=== PATIENT | male | born 1960 | race Caucasian/White ===

== ENCOUNTER 2019-02-21 11:53 | Emergency (ER) | payer OTHER, SELFPAY ==
[2019-02-21 11:54] VITALS: BP 153/81; PULSE 66; RESP 16; TEMP 36.4; O2SAT 96; BMI 41.1
--- NOTE | 2019-02-21 12:49 | RAD_ITS ---
STUDY: X-RAY - RIGHT ANKLE REASON FOR EXAM: Male, 58 years old. Pain and swelling following injury. TECHNIQUE: 3 view(s) of the ankle. COMPARISON: None. FINDINGS: Normal visualized distal tibia and fibula. Normal medial and lateral malleoli. Normal tibiotalar articulation and ankle mortise. Normal visualized talus and calcaneus. The visualized subtalar, talonavicular, calcaneocuboid and tarsal articulations are normal. Lateral soft tissue swelling. RAD/Ankle min 3 Views IMPRESSION: Lateral soft tissue swelling. Electronically Signed: Bhupinder Fitzpatrick, at 14:26 EDT , Service support ,
--- NOTE | 2019-02-21 12:49 | RAD_ITS ---
STUDY: X-RAY - RIGHT FOOT CLINICAL: Male, 58 years old. Pain and swelling following a fall. TECHNIQUE: 3 view(s) of the foot. COMPARISON: None. FINDINGS: Normal talus, calcaneus, and tarsal bones. Normal visualized subtalar, talonavicular, calcaneocuboid, tarsal and tarsometatarsal articulations. Normal metatarsi. Normal metatarsophalangeal joint of the great toe. Normal tibial and fibular sesamoid bones. Normal interphalangeal joint of the great toe. Normal phalanges of the great toe. Normal second through fifth metatarsophalangeal joints. Normal interphalangeal joints and phalanges of the lesser toes. Soft tissue swelling. RAD/Foot min 3 Views IMPRESSION: Soft tissue swelling. Electronically Signed: Bhupinder Fitzpatrick, at 14:25 EDT , Service support ,
--- NOTE | 2019-02-21 14:20 | ED.VISSUMM ---
- ER Visit Summary Date of Service: 02/21/19 Chief Complaint: [Injury to right foot and ankle] History of Present Illness: The patient is a 58 M [presents to the emergency department after sustaining an injury while at work today. Patient states that he was putting in a new water line when he stepped forward and rolled his ankle felt a pop. Patient states that he had hurt the same ankle about a week ago. Patient Nuys any other injuries. He denies any head or neck injury. Patient denies any medical problems.] Physical Examination: [HEENT-PERRLA, EOMI. Cranial nerves II through XII grossly intact. TMs clear. Mucous membranes moist. No adenopathy. Cardiovascular-regular rate and rhythm without murmur or ectopy Lungs-clear to auscultation, chest wall stable without crepitus or subcu emphysema Abdomen-normoactive bowel sounds, soft, nontender, no rebound or rigidity, no peritoneal signs. Extremities-intact ?4, normal range of motion, normal pulses. Right foot and ankle-patient has diffuse soft tissue swelling over the ankle with tenderness over the lateral malleolus. Patient also has tenderness over the base of the fifth metatarsal. He has no pain at the proximal fibular head. Patient neurovascular intact distally. Test Results: [X-rays of the right foot and ankle obtained read by myself as no acute fractures however official report from radiology pending.] Emergency Department Course and Treatment: [Patient was given a walking boot and he did not want anything for pain. Patient states that he has crutches at home] Treatment Plan: [Patient to ice and elevate extremity. Patient use ibuprofen or Tylenol for discomfort. Patient to bear weight as tolerated. Patient to follow-up with primary care physician within the next 7 to 10 days.] Disposition: [Discharged home in stable condition.] Impression: [Right foot and ankle sprain] This note was generated with [employer] dictation software. It may contain incorrect words, spelling, and punctuation that were not noted in review of the chart prior to signing ED Disposition - Plan for ED Patient: Referrals: Meño Jimenez MD [Primary Care Provider] -
--- NOTE | 2019-02-21 14:23 | ED.DEP ---
ED Disposition - Plan for ED Patient: Instructions: Sprain, Ankle, with X-Ray, Sprain Foot Referrals: Meño Jimenez MD [Primary Care Provider] - 5-7 Days
--- NOTE | 2019-02-21 15:35 | ED.RN ---
prescription given for walking boot. the proper size was not available in the ED.
== END 2019-02-21 15:40 | disposition home or self-care (01) ==
PROVIDERS: Emergency Provider Emergency Medicine; Family Provider Family Medicine; PCP Family Medicine
DX: S93.401A Sprain of unspecified ligament of right ankle, initial encounter (principal); S93.601A Unspecified sprain of right foot, initial encounter; X50.1XXA Overexertion from prolonged static or awkward postures, initial encounter; Y93.9 Activity, unspecified; Y92.9 Unspecified place or not applicable; Y99.9 Unspecified external cause status
CPT/HCPCS: 73610; 73630; 99283

== ENCOUNTER → 2020-08-20 15:06 | Outpatient (CLI) | payer OTHER, SELFPAY ==
--- NOTE | 2020-08-20 15:09 | RAD_ITS ---
STUDY: X-RAY CHEST REASON FOR EXAM: Male, 60 years old. chest discomfort and sob x 2 weeks TECHNIQUE: PA and lateral views of the chest. COMPARISON: None. FINDINGS: The lungs are clear and expanded. There is no demonstrated pleural abnormality. Normal size heart. Normal mediastinum and magno. Normal visualized pulmonary arteries. Normal visualized aortic arch and descending thoracic aorta. Normal visualized thoracic spine. Normal visualized ribs, clavicles, and shoulders. There is no demonstrated abnormality of the visualized soft tissue structures of the upper abdomen. RAD/Chest PA and Lateral IMPRESSION: Normal x-ray examination of the chest. Electronically Signed: Wayne Waller MD at 16:54 EST Tel , Service support ,
[2020-08-20 17:41] LABS: Absolute Lymphocyte Count 2.11 X10^3/uL (0.83-4.51); Absolute Neutrophil Count 3.5 X10^3/uL (2.0-7.7); Basophil# 0.02 X10^3/uL; Basophil% 0.3 % (0-1); Eosinophil# 0.12 X10^3/uL; Eosinophils% 1.9 % (0-5); Hemoglobin 14.4 g/dL (13.0-16.5); Lymphocyte # 2.11 X10^3/ul (4.0); Lymphocyte % 33.2 % (19-41); Mean Corp Hgb Conc 31.3 g/dL (32-36); Mean Corpuscular Hgb 28.4 pg (27.0-32.0); Mean Corpuscular Volume 90.7 fL (80-94); Mean Platelet Vol. 9.8 fl (6.2-12.0); Monocyte# 0.61 X10^3/uL; Monocyte% 9.6 % (0-10); NRBC Flagged by Analyzer 0 % (0-5); Neutrophil # 3.48 X10^3/uL (2.7-7.7); Neutrophil % 54.7 % (47-70); Platelet Count 273 K/mm3 (150-450); RBC Distribution Width CV 13.9 % (11.6-14.6); RBC Distribution Width SD 46.5 fl (35.1-43.9); Red Blood Count 5.07 M/mm3 (4.6-6.2); White Blood Count 6.4 K/mm3 (4.4-11.0)
[2020-08-20 18:15] LABS: Anion Gap 8 (5-15); BUN 19 mg/dL (7-18); BUN/Creat Ratio 16.8 RATIO (10-20); Calcium,Total 9.2 mg/dL (8.5-10.1); Chloride 106 mmol/L (98-107); Cholesterol 221 mg/dL (200); Creatinine, Serum 1.13 mg/dL (0.70-1.30); EST Glomerular Filtration Rate 71 mL/min (>60); Est Glom Filt Rate - Afr Amer 85 mL/min (>60); Glucose 92 mg/dL (74-106); High Density Lipoprotein 31 mg/dL; PSA,Total - Annual Screen 1.04 ng/mL (0.00-4.00); Potassium 3.8 mmol/L (3.5-5.1); Sodium Level 141 mmol/L (136-145); Thyroid Stim Hormone (TSH) 1.78 uIU/mL (0.358-3.74); Triglycerides 216 mg/dL; Very Low Density Lipoprotein 43 mg/dL (5-40)
== END ==
PROVIDERS: PCP Family Medicine; Referring Provider Family Medicine; Visit Provider Family Medicine
DX: R07.9 Chest pain, unspecified (principal); Z12.5 Encounter for screening for malignant neoplasm of prostate
CPT/HCPCS: 36415; 71046; 80048; 80061; 84153; 84443; 85025; G0103

== ENCOUNTER 2020-08-24 02:05 | Emergency (ER) | payer OTHER, SELFPAY ==
[2020-08-24 02:08] VITALS: BP 113/80; PULSE 157; RESP 14; TEMP 36.6; O2SAT 98; BMI 34.9
--- NOTE | 2020-08-24 02:08 | EKG12_ITS ---
Test Reason : REPEAT Blood Pressure : / mmHG Vent. Rate : 092 BPM Atrial Rate : 092 BPM P-R Int : 164 ms QRS Dur : 108 ms QT Int : 342 ms P-R-T Axes : 007 -18 009 degrees QTc Int : 422 ms Normal sinus rhythm Minimal voltage criteria for LVH, may be normal variant Borderline ECG Confirmed by NOEMÍ TORRES, STEVENSON ([id number]), editor farm journal ARBEN LAMBERT ([id number]) on 08/24/2020 11:26:49 AM Referred By: Confirmed By:STEVENSON DOWD MD
--- NOTE | 2020-08-24 02:08 | RAD_ITS ---
STUDY: X-RAY CHEST REASON FOR EXAM: Male, 60 years old. Chest pain TECHNIQUE: Single AP portable view of the chest. COMPARISON: 08/20/2020 FINDINGS: The lungs are clear and expanded. There is no demonstrated pleural abnormality. Normal size heart. Normal mediastinum and magno. Normal visualized pulmonary arteries. Normal visualized aortic arch and descending thoracic aorta. Normal visualized thoracic spine. Normal visualized ribs, clavicles, and shoulders. There is no demonstrated abnormality of the visualized soft tissue structures of the upper abdomen. RAD/Chest 1 View (Portable) IMPRESSION: Normal x-ray examination of the chest. Electronically Signed: Sven Caballero MD at 2:39 EST Tel , Service support ,
--- NOTE | 2020-08-24 02:11 | ED.RN ---
NO OLD EKGS IN MUSE
[2020-08-24 02:15] VITALS: BP 117/89; PULSE 156; RESP 14; O2SAT 95
[2020-08-24] MEDS: Adenosine 6 MG/2 ML Syringe IV (02:19)
[2020-08-24 02:23] VITALS: BP 117/89; PULSE 90; RESP 15; O2SAT 96
--- NOTE | 2020-08-24 02:25 | ED.VIS.GEN ---
History of Present Illness Chief Complaint: Chest Pain Informant: Patient, Family Narrative: 60-year-old male with no significant medical problems presents the emergency department with chest pain and palpitations. Patient returned home from a [place] vacation on 11 August. He spent 1 week in bed feeling significant fatigue. He states that he at times will feel his heart racing and he gets a heaviness in his chest. Is been intermittent over the last couple days. He saw his primary care physician and had blood work and an EKG. He is scheduled for a stress test. Symptoms came on tonight and he came to emergency. He has been taking a baby aspirin a day since he saw his doctor. He notes some swelling of his right leg following a injury while playing volleyball in which he tore the calf muscle. He denies any pleuritic pain to the chest. No significant dyspnea. Past Medical History - Allergies and Home Meds Allergies/Adverse Reactions: Allergies seafood Allergy (Uncoded 08/24/20 02:07) Hives Primary Care Physician: Meño Jimenez MD [Primary Care Provider] - Past Medical History: None Surgical History: noncontributory Lives: Spouse/ Significant Other Smoking Status: Never smoker Drugs: None Review of Systems General: Reports: Malaise. Denies: Chills, Fever, Sweats Eyes: Denies: Visual changes - bilaterally, Diplopia ENT: Denies: Rhinorrhea, Sore throat Cardiovascular: Reports: Chest pain, Palpitations, Heart racing Respiratory: Reports: Dyspnea. Denies: Cough, Dyspnea on exertion Gastrointestinal: Denies: Abdominal pain, Nausea, Vomiting, Diarrhea, Melena, Hematochezia Genitourinary: Denies: Dysuria, Hematuria, Frequency Musculoskeletal: Denies: Back pain, Extremity Pain Skin: Denies: Rash, Wounds Neurological: Denies: Headache, Weakness, Numbness Physical Exam Vital Signs/Narrative: Vital Signs Temp Pulse Resp BP Pulse Ox 08/24/20 02:23 90 15 117/89 H 96 08/24/20 02:15 156 H 14 117/89 H 95 08/24/20 02:08 97.9 F 157 H 14 113/80 98 Inital Vital Signs reviewed: Yes General: Well nourished, Well developed, Obese, No Acute Distress Head: Normocephalic, Atraumatic Eyes: Perrl, EOMI ENT: Moist mucous membranes, No rhinorrhea Neck: Supple, Nontender Cardiovascular: Regular rate, No murmurs, Tachycardia Respiratory: No distress, CTA bilaterally, Chest nontender Abdomen: Soft, Nontender, Nondistended, Normal bowel sounds Back: Nontender, Normal Inspection Extremities: No edema, Tenderness - Right calf secondary to injury Skin: Normal color, No rash Neurological: Alert, Oriented x3, Cranial nerves II-XII grossly intact, Normal Strength, Normal Sensation Psychological: Normal affect, Normal Mood Diagnostic/Tx/Re-eval Clinical Impression(s) from Imaging Studies Chest X-Ray 08/24/20 02:08 IMPRESSION: Normal x-ray examination of the chest. Electronically Signed: Sven Caballero MD at 2:39 EST Tel , Service support , Laboratory Last Values WBC 10.5 K/mm3 (4.4-11.0) 08/24/20 02:10 RBC 4.85 M/mm3 (4.6-6.2) 08/24/20 02:10 Hgb 14.5 g/dL (13.0-16.5) 08/24/20 02:10 Hct 44.1 % (40-54) 08/24/20 02:10 MCV 90.9 fL (80-94) 08/24/20 02:10 MCH 29.9 pg (27.0-32.0) 08/24/20 02:10 MCHC 32.9 g/dL (32-36) D 08/24/20 02:10 RDW Std Deviation 47.6 fl (35.1-43.9) H 08/24/20 02:10 RDW Coeff of Addis 14.1 % (11.6-14.6) 08/24/20 02:10 Plt Count 267 K/mm3 (150-450) 08/24/20 02:10 MPV 10.1 fl (6.2-12.0) 08/24/20 02:10 Immature Gran % (Auto) 0.500 % (0.0-0.9) 08/24/20 02:10 Neut % (Auto) 58.6 % (47-70) 08/24/20 02:10 Lymph % (Auto) 30.4 % (19-41) 08/24/20 02:10 Wheeler % (Auto) 8.1 % (0-10) 08/24/20 02:10 Eos % (Auto) 2.0 % (0-5) 08/24/20 02:10 Baso % (Auto) 0.4 % (0-1) 08/24/20 02:10 Absolute Neuts (auto) 6.1 X10^3/uL (2.0-7.7) 08/24/20 02:10 Absolute Lymphs (auto) 3.18 X10^3/uL (0.83-4.51) 08/24/20 02:10 Nucleated RBC % 0 % (0-5) 08/24/20 02:10 PT 12.5 SECONDS (11.7-14.9) 08/24/20 02:10 INR 1.0 08/24/20 02:10 APTT 34.4 Seconds (24.1-36.2) 08/24/20 02:10 Sodium 140 mmol/L (136-145) 08/24/20 02:10 Potassium 3.6 mmol/L (3.5-5.1) 08/24/20 02:10 Chloride 109 mmol/L (98-107) H 08/24/20 02:10 Carbon Dioxide 26.0 mmol/L (21.0-32.0) 08/24/20 02:10 Anion Gap 5 (5-15) 08/24/20 02:10 BUN 19 mg/dL (7-18) H 08/24/20 02:10 Creatinine 1.31 mg/dL (0.70-1.30) H 08/24/20 02:10 Estim Creat Clear Calc 62.69 ml/min 08/24/20 02:10 Est GFR (MDRD) Af Amer 72 mL/min (>60) 08/24/20 02:10 Est GFR (MDRD) Non-Af 60 mL/min (>60) 08/24/20 02:10 BUN/Creatinine Ratio 14.5 RATIO (10-20) 08/24/20 02:10 Glucose 130 mg/dL (74-106) H 08/24/20 02:10 Calcium 9.6 mg/dL (8.5-10.1) 08/24/20 02:10 Magnesium 2.2 mg/dL (1.6-2.6) 08/24/20 02:10 Troponin I 0.024 ng/mL (<0.045) 08/24/20 02:10 TSH 2.29 uIU/mL (0.358-3.74) 08/24/20 02:10 - EKG Initial EKG Interpretation: - - Initial EKG shows a SVT pattern and a rate of 156. No concerning features of ACS. - Medical Decision Making Patient's heart rate much has stayed about 160 during the interview We gave him 6 mg of adenosine and following the pause the patient returned to a sinus rhythm. He was observed on the monitor while we obtain the blood work. No further dysrhythmias were noted. Basic blood work is negative. I spoke with on-call cardiology Dr. Amaral. We will place him on metoprolol 25 mg a day first dose will be given here. He is to call the office in the morning to arrange early follow-up. - Critical Care Time Critical care time (excluding procedures): 30-74 minutes - 35 minutes, Discussing w/Patient &/or Family/Cardiopulmonary Physical Therapist, Discussing w/Consultants, Performing Direct Patient Care at Bedside ED Disposition - Plan for ED Patient: Disposition: Home or Assisted Living Diagnosis: SVT (supraventricular tachycardia) Instructions: ED About Arrhythmias Prescriptions: Metoprolol(XL)Succ [Toprol Xl (Beta Veronika)] 25 mg PO DAILY #30 tab Prescription Printed Referrals: Giovanni Amaral MD [STAFF PHYSICIAN] - (call the office to arrange early follow up - please tell them you came to the ED tonight and had SVT. Tell them you have a stress test next week already scheduled and to ask if they want you seen before that test.)
--- NOTE | 2020-08-24 02:29 | EKG12_ITS ---
Test Reason : CP Blood Pressure : / mmHG Vent. Rate : 156 BPM Atrial Rate : 038 BPM P-R Int : 000 ms QRS Dur : 102 ms QT Int : 284 ms P-R-T Axes : 000 -15 073 degrees QTc Int : 457 ms Supraventricular tachycardia Nonspecific ST and T wave abnormality Abnormal ECG Confirmed by NOEMÍ TORRES, STEVENSON ([id number]), editor farm journal ARBEN LAMBERT ([id number]) on 08/24/2020 11:26:40 AM Referred By: Confirmed By:STEVENSON DOWD MD
[2020-08-24 02:32] LABS: Absolute Lymphocyte Count 3.18 X10^3/uL (0.83-4.51); Absolute Neutrophil Count 6.1 X10^3/uL (2.0-7.7); Basophil# 0.04 X10^3/uL; Basophil% 0.4 % (0-1); Eosinophil# 0.21 X10^3/uL; Hematocrit 44.1 % (40-54); Hemoglobin 14.5 g/dL (13.0-16.5); Lymphocyte # 3.18 X10^3/ul (4.0); Lymphocyte % 30.4 % (19-41); Mean Corp Hgb Conc 32.9 g/dL (32-36); Mean Corpuscular Hgb 29.9 pg (27.0-32.0); Mean Corpuscular Volume 90.9 fL (80-94); Mean Platelet Vol. 10.1 fl (6.2-12.0); Monocyte# 0.85 X10^3/uL; Monocyte% 8.1 % (0-10); NRBC Flagged by Analyzer 0 % (0-5); Neutrophil # 6.14 X10^3/uL (2.7-7.7); Neutrophil % 58.6 % (47-70); Platelet Count 267 K/mm3 (150-450); RBC Distribution Width CV 14.1 % (11.6-14.6); RBC Distribution Width SD 47.6 fl (35.1-43.9); Red Blood Count 4.85 M/mm3 (4.6-6.2); White Blood Count 10.5 K/mm3 (4.4-11.0)
[2020-08-24 02:37] LABS: Prothrombin Time (Protime)PT. 12.5 SECONDS (11.7-14.9)
[2020-08-24] MEDS: Aspirin 81 MG TAB.CHEW 324 MG PO (02:37)
[2020-08-24 02:38] LABS: Partial Thromboplast Time 34.4 Seconds (24.1-36.2)
[2020-08-24 02:51] LABS: Anion Gap 5 (5-15); BUN 19 mg/dL (7-18); BUN/Creat Ratio 14.5 RATIO (10-20); Calcium,Total 9.6 mg/dL (8.5-10.1); Chloride 109 mmol/L (98-107); Creatinine, Serum 1.31 mg/dL (0.70-1.30); EST Glomerular Filtration Rate 60 mL/min (>60); Est Glom Filt Rate - Afr Amer 72 mL/min (>60); Estimated Creatinine Clearance 62.69 ml/min; Glucose 130 mg/dL (74-106); Magnesium 2.2 mg/dL (1.6-2.6); Potassium 3.6 mmol/L (3.5-5.1); Sodium Level 140 mmol/L (136-145); Thyroid Stim Hormone (TSH) 2.29 uIU/mL (0.358-3.74)
[2020-08-24] MEDS: Metoprolol(XL)Succ 25 MG Tablet PO (03:15)
[2020-08-24 03:16] VITALS: BP 95/78; PULSE 96; RESP 18; O2SAT 95
== END 2020-08-24 03:16 | disposition home or self-care (01) ==
PROVIDERS: Emergency Provider Emergency Medicine; PCP Family Medicine
DX: I47.1 Supraventricular tachycardia (principal); Z79.82 Long term (current) use of aspirin
CPT/HCPCS: 71045; 80048; 83735; 84443; 84484; 85025; 85610; 85730; 93005; 96374; 99285; A4216; J0153

== ENCOUNTER → 2020-08-28 06:41 | Outpatient (CLI) | payer OTHER, SELFPAY ==
[2020-08-24 02:08] VITALS: BMI 34.9
--- NOTE | 2020-08-28 08:45 | STRESSREP_ITS ---
Stress Test Report Date: 08-28-2020 Procedure: Exercise tolerance test/imaging study Indications: Chest pain; PSVT Consent: Per the patient Procedure: The patient exercised on a Edu protocol for 7 minutes and 45 seconds completing Stage II and 1 minute and 45 seconds of Stage III achieving a peak heart rate of 150 bpm (93% predicted maximal heart rate) with a peak blood pressure 198/82 mmHg and a peak MET capacity of 9 METs. The baseline ECG demonstrated sinus rhythm. The peak exercise ECG demonstrated somatic/motion artifact with no obvious ECG changes. There was a rare PVC pretest and during exercise and occasional PACs and PVCs during recovery as well as an isolated ventricular couplet during recovery. The functional capacity was considered good. There was no complaint of chest discomfort during exercise or recovery. The examination was discontinued secondary to dyspnea. Impression: 1. Technically adequate (percent predicted maximal heart rate greater than 85%) exercise tolerance test 2. Peak exercise ECG with somatic/motion artifact with no obvious ECG changes 3. There was a rare PVC pretest and during exercise and occasional PACs and PVCs during recovery as well as an isolated ventricular couplet during recovery 4. Nuclear images pending Myocardial perfusion imaging study: Technique: The patient was injected with 14.7 mCi of technetium 99m Cardiolite and subsequently rest SPECT Cardiolite nuclear imaging was obtained in the horizontal long, vertical long, and short axis views. The patient exercised on a Edu protocol for 7 minutes and 45 seconds completing Stage II and 1 minute and 45 seconds of Stage III achieving a peak heart rate of 150 bpm (93% predicted maximal heart rate) with a peak blood pressure 198/82 mmHg and a peak MET capacity of 9 METs. The patient was injected with 45.0 mCi of technetium 99m Cardiolite and subsequently stress SPECT Cardiolite nuclear imaging was obtained in the horizontal long, vertical long, and short axis views. A gated Cardiolite study at peak stress was obtained. Interpretation: Rest and stress SPECT Cardiolite nuclear imaging status post realignment, mingo lization, and attenuation correction, demonstrates the appearance of relative uniform tracer uptake and myocardial perfusion appearing within normal limits. There is end systolic thickening and brightening. The gated Cardiolite study demonstrates myocardial thickening and inward wall motion. The reported LVEF is 60%. Impression: 1. Rest and stress SPECT Cardiolite nuclear imaging demonstrate relative uniform tracer uptake and myocardial perfusion appearing within normal limits. 2. The gated Cardiolite study reports an LVEF of 60%. This note was generated with [employer] software. It may contain incorrect words, spelling, and punctuation that were not noted in checking the note before signing.
== END ==
PROVIDERS: PCP Family Medicine; Referring Provider Family Medicine; Visit Provider Family Medicine
DX: R07.9 Chest pain, unspecified (principal)
CPT/HCPCS: 78452; 93017; A9500; A4216

== ENCOUNTER → 2020-09-13 06:54 | Outpatient (CLI) | payer OTHER, SELFPAY ==
[2020-08-24 02:08] VITALS: BMI 34.9
--- NOTE | 2020-09-14 10:26 | PFT ---
INTRODUCTION: The patient is a 60-year-old male that presents for pulmonary function studies secondary to a diagnosis of dyspnea. Respiratory therapy reports good patient effort. Bronchodilators were used during testing. INTERPRETATION: Forced expiration spirometry demonstrates the presence of a mild large airways obstructive ventilatory defect. There was no significant response to aerosolized bronchodilators, based upon strict ATS criteria. Spirograms are of good quality and do not plateau indicating slow emptying of the lungs. Body plethysmography was performed and revealed an elevated TLC to 124% of predicted, indicative of underlying hyperinflation. Diffusing capacity by single breath CO was within normal limits. IMPRESSION: Irreversible mild large airways obstructive ventilatory defect with associated hyperinflation and preserved diffusing capacity.
== END ==
PROVIDERS: PCP Family Medicine; Visit Provider Family Medicine
DX: R06.00 Dyspnea, unspecified (principal); R53.83 Other fatigue
CPT/HCPCS: 94060; 94726; 94729

== ENCOUNTER → 2020-09-24 13:48 | Outpatient (CLI) | payer OTHER, SELFPAY ==
[2020-09-20 16:20] VITALS: BMI 35.4
--- NOTE | 2020-09-24 13:51 | ECHOCS_ITS ---
Reason For Study: Arrhythmia Procedure This was a 2D Doppler, Color Flow transthoracic echocardiogram. The study was technically difficult. Contrast injection was performed. Exam performed in department. Left Ventricle Normal LV size. Moderate concentric left ventricular hypertrophy. Left ventricular systolic function is normal. The estimated ejection fraction is 65 %. No evidence for diastolic dysfunction. No regional wall motion abnormalities noted. Right Ventricle Normal RV size. Normal systolic function. Atria The left atrium is mildly enlarged. Normal right atrium. No doppler evidence for ASD. Mitral Valve There is no mitral annular calcification. Mild diffuse mitral valve thickening. Moderate mitral valve prolapse, posterior leaflet. Moderate (2+) eccentric mitral valve insufficiency. Tricuspid Valve Normal tricuspid valve. Trivial tricuspid valve insufficiency. Right ventricular systolic pressure estimated to be 25 mmHg. Aortic Valve Trisinus/trileaflet aortic valve. Normal aortic valve. Pulmonic Valve The pulmonic valve is not well visualized. Great Vessels Normal sized aortic root. Pericardium/Pleural No pericardial effusion. Medication 22 gauge I.V. with prn adaptor inserted into right arm. Diluted definity 3ml given slow IV push to enhance endocardial definition. MMode/2D Measurements & Calculations LVIDd: 5.5 cm IVSd: 1.7 cm Ao root diam: 3.7 cm LVIDs: 4.8 cm LVPWd: 1.6 cm LA dimension: 4.3 cm RVDd: 3.9 cm FS: 13.2 % LAV(MOD-bp): 73.9 ml LA A4 area: 23.5 cm2 RA A4 area: 19.7 cm2 LAV(MOD-bp) Indexed: 32.5 ml/m2 LAV(MOD-sp2): 68.9 ml LAV(MOD-sp4): 65.4 ml Time Measurements MV dec time: 0.18 sec Doppler Measurements & Calculations MV E max bo: 114.5 cm/sec Lat Peak E' Bo: 11.5 cm/sec Med Peak E' Bo: 6.8 cm/sec MV A max bo: 80.7 cm/sec E/E' lat: 10.0 E/E' med: 16.7 MV E/A: 1.4 MV V2 max: 140.6 cm/sec MV P1/2t max bo: 140.6 cm/sec Ao V2 max: 135.9 cm/sec MV max P.9 mmHg MV P1/2t: 71.7 msec Ao max P.4 mmHg MV V2 mean: 65.5 cm/sec MV dec slope: 574.5 cm/sec2 MV mean P.1 mmHg MV V2 VTI: 42.6 cm MVA(P1/2t): 3.1 cm2 LV V1 max: 121.3 cm/sec PA V2 max: 122.3 cm/sec TR max bo: 233.4 cm/sec LV V1 max P.9 mmHg TR max P.8 mmHg Interpretation Summary The study was technically difficult. Contrast injection was performed. Left ventricular systolic function is normal. The estimated ejection fraction is 65 %. Moderate concentric left ventricular hypertrophy. The left atrium is mildly enlarged. Mild diffuse mitral valve thickening. Moderate mitral valve prolapse, posterior leaflet Moderate (2+) eccentric mitral valve insufficiency. Trivial tricuspid valve insufficiency. Right ventricular systolic pressure estimated to be 25 mmHg. No evidence for diastolic dysfunction. Ordering Physician: Meño Jimenez Referring Physician: Meño Jimenez Performed By: Pillo Bella RCS
== END ==
PROVIDERS: PCP Family Medicine; Referring Provider Family Medicine; Visit Provider Family Medicine
DX: R07.9 Chest pain, unspecified (principal); I49.9 Cardiac arrhythmia, unspecified
CPT/HCPCS: 93306; Q9957; A4216; C8929

== ENCOUNTER → 2020-10-02 08:58 | Outpatient (CLI) | payer OTHER, SELFPAY ==
[2020-09-20 16:20] VITALS: BMI 35.4
[2020-10-02 10:36] LABS: BNP,B-Type NATRIURETIC PEPTIDE 32.1 pg/mL (0-100)
[2020-10-02 10:39] LABS: Iron 70 ug/dL (65-175)
[2020-10-02 10:41] LABS: Vitamin B12 244 pg/mL (211-911); Vitamin D,25 Hydroxy 29.2 ng/mL
== END ==
PROVIDERS: PCP Family Medicine; Referring Provider Family Medicine; Visit Provider Family Medicine
DX: R53.83 Other fatigue (principal); R07.9 Chest pain, unspecified
CPT/HCPCS: 36415; 82306; 82533; 82607; 83540; 83880; 84403

== ENCOUNTER → 2022-05-15 | Outpatient (CLI) | payer OTHER, SELFPAY ==
--- NOTE | 2022-05-15 14:14 | RAD_ITS ---
EXAM: XR CHEST, 2 VIEWS CLINICAL INDICATION: SHORTNESS OF BREATH TECHNIQUE: Frontal and lateral views of the chest. This report was created using [employer] report generation technology. COMPARISON: 08/24/2020 FINDINGS: LUNGS AND PLEURAL SPACES: Unremarkable. No consolidation or edema. No pneumothorax. No effusion. HEART: Unremarkable. Cardiac silhouette not enlarged. MEDIASTINUM: Central airways and mediastinal contour are unremarkable. BONES/JOINTS: Unremarkable. SOFT TISSUES: Unremarkable. RAD/Chest PA and Lateral IMPRESSION: No radiographic evidence of acute cardiopulmonary disease. Electronically Signed: Jose Juan Paul MD at 20:24 EDT ,
[2022-05-15 15:32] LABS: Absolute Neutrophil Count 3.7 X10^3/uL (2.0-7.7); Basophil# 0.03 X10^3/uL; Basophil% 0.5 % (0-1); Eosinophil# 0.12 X10^3/uL; Hemoglobin 14.2 g/dL (13.0-16.5); Lymphocyte % 28.3 % (19-41); Mean Corp Hgb Conc 33.8 g/dL (32-36); Mean Corpuscular Hgb 30.2 pg (27.0-32.0); Mean Corpuscular Volume 89.4 fL (80-94); Mean Platelet Vol. 10.3 fl (6.2-12.0); Monocyte# 0.43 X10^3/uL; Monocyte% 7.2 % (0-10); NRBC Flagged by Analyzer 0 % (0-5); Neutrophil % 61.7 % (47-70); Platelet Count 219 K/mm3 (150-450); RBC Distribution Width CV 14.2 % (11.6-14.6); RBC Distribution Width SD 46.4 fl (35.1-43.9)
[2022-05-15 15:38] LABS: Anion Gap 7 (5-15); BUN 14 mg/dL (7-18); BUN/Creat Ratio 14.8 RATIO (10-20); Calcium,Total 9.4 mg/dL (8.5-10.1); Chloride 109 mmol/L (98-107); Creatinine, Serum 0.94 mg/dL (0.70-1.30); EST Glomerular Filtration Rate 86 mL/min (>60); Est Glom Filt Rate - Afr Amer 104 mL/min (>60); Glucose 93 mg/dL (74-106); Potassium 3.8 mmol/L (3.5-5.1); Sodium Level 140 mmol/L (136-145)
[2022-05-15 15:41] LABS: BNP,B-Type NATRIURETIC PEPTIDE 24.5 pg/mL (0-100)
== END | disposition home or self-care (01) ==
LOC: MTLAB 14:12
PROVIDERS: PCP Family Medicine; Referring Provider Family Medicine; Visit Provider Family Medicine
DX: R06.02 Shortness of breath (principal)
CPT/HCPCS: 36415; 71046; 80048; 83880; 85025

== ENCOUNTER → 2025-06-19 | Outpatient (CLI) | payer OTHER, SELFPAY ==
[2025-06-19 13:40] LABS: AST(SGOT) 24 U/L (<=37); Alanine Aminotransfer ALT/SGPT 26 U/L (<=46); Albumin, Serum 4.5 g/dL (3.4-4.8); Alkaline Phosphatase 66 U/L (40-129); Anion Gap 11 (5-15); BUN 16 mg/dL (4-19); BUN/Creat Ratio 13.7 RATIO (10-20); Calcium,Total 9.5 mg/dL (7.6-11.0); Carbon Dioxide 25.6 mmol/L (21.0-32.0); Chloride 105 mmol/L (98-108); Cholesterol 250 mg/dL (<=200); Globulin 3.0 g/dL (2.2-4.2); Glucose 106 mg/dL (70-99); Low Density Lipoprotein Calc. 161 mg/dL; PSA,Total - Annual Screen 0.83 ng/mL (0.02-4.00); Potassium 4.2 mmol/L (3.3-5.1); Triglycerides 290 mg/dL; Very Low Density Lipoprotein 58 mg/dL (5-40); Vitamin D,25 Hydroxy 29.9 ng/mL (30-100); cholesterol:hdl ratio screen 7.23
== END | disposition home or self-care (01) ==
LOC: MFPLAB 10:20
PROVIDERS: PCP Family Medicine; Visit Provider Family Medicine
DX: Z12.5 Encounter for screening for malignant neoplasm of prostate (principal); E78.2 Mixed hyperlipidemia; R79.89 Other specified abnormal findings of blood chemistry
CPT/HCPCS: 36415; 80053; 80061; 82306; 84153; G0103